=== PATIENT | male | born 1955 | race Asian ===

== ENCOUNTER 2020-12-10 15:21 | Emergency (ER) | payer MEDICARE ==
[~2020-12-10] VITALS: Ht 165.1 cm; Wt 52.3 kg
[2020-12-10] MEDS ORDERED: morphine 4 MG/ML inj SYRINge IV ONE (15:40)
[2020-12-10] MEDS ORDERED: metoprolol tartrate 1mg/ml inj IV ONE (15:40)
[2020-12-10 15:59] LABS: BASOPHILS % (AUTO) 0.2 % (0-1); EOSINOPHILS % (AUTO) 0.1 % (0-6); HEMATOCRIT 39.2 % (42.0-52.0); HEMOGLOBIN 12.7 g/dl (14.0-17.9); LYMPHOCYTES # (AUTO) 1.1 X10'3 (1.1-4.8); LYMPHOCYTES % (AUTO) 9.4 % (21-51); MEAN CORPUSCULAR HEMOGLOBIN 26.9 PG (27.0-31.0); MEAN CORPUSCULAR HGB CONC 32.4 g/dL (33.0-36.5); MEAN CORPUSCULAR VOLUME 82.9 FL (78-98); MEAN PLATELET VOLUME 7.4 FL (7.4-10.4); MONOCYTES # (AUTO) 0.9 X10'3 (0-0.9); MONOCYTES % (AUTO) 7.4 % (2-12); NEUTROPHILS # (AUTO) 9.9 X10'3 (1.8-7.7); NEUTROPHILS % (AUTO) 82.9 % (42-75); PLATELET COUNT 295 X10'3 (140-440); RED BLOOD COUNT 4.73 X10'6 (4.70-6.10); RED CELL DISTRIBUTION WIDTH 16.3 % (11.5-14.5); WHITE BLOOD COUNT 11.9 X10'3 (4.5-11.0)
[2020-12-10 16:19] LABS: ALANINE AMINOTRANSFERASE 49 U/L (12-78); ALBUMIN 3.4 G/DL (3.4-5.0); ALKALINE PHOSPHATASE 87 IU/L (46-116); ANION GAP 9 (8-16); ASPARTATE AMINO TRANSFERASE 50 U/L (10-37); BILIRUBIN,TOTAL 0.4 MG/DL (0.1-1.0); BLOOD UREA NITROGEN 36 MG/DL (7-18); BUN/CREATININE RATIO 22.2 (5.4-32.0); CALCIUM 8.4 MG/DL (8.5-10.1); CHLORIDE 106 MMOL/L (99-107); CREATININE 1.62 MG/DL (0.60-1.10); GLUCOSE 111 MG/DL (70-104); POTASSIUM 3.9 MMOL/L (3.5-5.1); SODIUM 144 MMOL/L (135-145); TOTAL CARBON DIOXIDE 28.9 MMOL/L (24-32); TOTAL PROTEIN 6.9 G/DL (6.4-8.2); eGFR 43 ML/MIN
[2020-12-10] MEDS ORDERED: iohexol 350MG/ML 100ml bottle IV ONE (16:25)
[2020-12-10] MEDS ORDERED: MESSAGE TO NURSING PO NR (16:30)
[2020-12-10 17:47] LABS: LIPASE 89 U/L (73-393)
--- NOTE | 2020-12-10 18:16 | NUR ---
pt has no pain at all and asking when he will go home, informed md.
[2020-12-10] MEDS ORDERED: sucralfate 1gm/10ml UD suspension PO STA (18:20)
[2020-12-10] MEDS ORDERED: LIDOcaine Viscous 15ml cup MM ONE (18:20)
[2020-12-10] MEDS ORDERED: mag hydrox/Alum hydrox/simeth 30ml oral suspension PO ONE (18:20)
[2020-12-10 18:47] VITALS: BP 151/99
== END 2020-12-10 18:48 | disposition home or self-care (01) ==
LOC: ER 15:22
DX: R10.84 Generalized abdominal pain (principal); Z20.822 Contact with and (suspected) exposure to COVID-19; R11.15 Cyclical vomiting syndrome unrelated to migraine; R06.02 Shortness of breath; I10 Essential (primary) hypertension; E11.9 Type 2 diabetes mellitus without complications; Z87.11 Personal history of peptic ulcer disease; Z98.890 Other specified postprocedural states
CPT/HCPCS: 36415; 71045; 71275; 74174; 76700; 80053; 83690; 83880; 84484; 85025; 87635; 96374; 96375; 99285; C9803; J2270; Q9967; J3490